=== PATIENT | male | born 1985 | race Caucasian/White ===

== ENCOUNTER 2018-01-27 17:59 | Inpatient (IN) | payer OTHER ==
[2018-01-27 20:04] VITALS: BMI 23.0
--- NOTE | 2018-01-27 21:55 | HP ---
CIWA Score - CIWA Score Nausea/Vomitin Muscle Tremors: 2 Anxiety: 4-Mod. Anxious/Guarded Agitation: 2 Paroxysmal Sweats: 2 Orientation: 0-Oriented Tacttile Disturbances: 2-Mild Itch/Numbness/Burn (both hands) Auditory Disturbances: 0-None Visual Disturbances: 0-None Headache: 2-Mild CIWA-Ar Total Score: 17 Admission ROS S - HPI Chief Complaint: benzodiazepine withdrawal symptoms Allergies/Adverse Reactions: Allergies Allergy/AdvReac Type Severity Reaction Status Date / Time No Known Allergies Allergy Verified 01/27/18 22:13 History of Present Illness: 32 yo male with first admission to detox, hx of benzodiazepine dependence is here here seeking detox and treatment for withdrawal symptoms. Patient was referred by news editor Margareth Castro, at [place] after patient verbalized to provider he was suffering from acute benzodiazepine withdrawal and patient was taking more than prescribed Benzos ( see letter from prescribing provider). Patient is to follow up with rehabilitation at [place] after completing detox. Patient has hx of chronic opioid dependence which he reports use to treat his chronic back pain, patient's opioids were discontinued and patient was started on suboxone on 01/13/18. PMHX: chronic back pain, depression, anxiety. Hx of multiple suicide attempts with last episode March 2017. Denies hx of seizures or blackouts. Utox positive for AMANDA, BZO and BUP. Reports tried cocaine for the first time this past 01/23/18. Reference #: [id number] Others' Prescriptions Patient Name: Nba De Dios Date: 1985 Address: [address] [place] [address] Sex: Male Rx Written Rx Dispensed Drug Quantity Days Supply Prescriber Name 01/13/2018 01/14/2018 suboxone 8 mg-2 mg sl film 60 30 Belia Andrew MD 10/28/2017 10/28/2017 zolpidem tartrate 5 mg tablet 10 10 Margareth Castro 10/25/2017 10/25/2017 clonazepam 0.5 mg tablet 60 30 Margareth Castro 10/10/2017 10/10/2017 oxycodone-acetaminophen 10-325 mg tab 90 30 Belia Andrew MD 09/12/2017 09/12/2017 oxycodone-acetaminophen 10-325 mg tab 90 30 Belia Andrew MD 08/18/2017 08/19/2017 clonazepam 0.5 mg tablet 1 1 Saira Mcdermott MD 02/20/2017 02/20/2017 oxycodone-acetaminophen 10-325 mg tab 120 30 Javier Galvez MD Patient Name: Nba De Dios Date: 1985 Address: [address] [place] [address] Sex: Male Rx Written Rx Dispensed Drug Quantity Days Supply Prescriber Name 01/07/2018 01/08/2018 oxycodone hcl 10 mg tablet 28 7 Forrest Red Jr, MD 01/07/2018 01/07/2018 clonazepam 1 mg tablet 60 30 Forrest Red Jr, MD 12/18/2017 12/20/2017 oxycodone-acetaminophen 10-325 mg tab 120 30 Forrest Red Jr, MD 12/19/2017 12/19/2017 oxycodone-acetaminophen 10-325 mg tab 3 1 Forrest Red Jr, MD 11/18/2017 11/19/2017 oxycodone-acetaminophen 10-325 mg tab 90 30 Forrest Red Jr, MD 11/05/2017 11/05/2017 clonazepam 1 mg tablet 90 30 Binh Castrosean [place] 11/05/2017 11/05/2017 zolpidem tartrate 5 mg tablet 30 30 Binh Castrocy G 11/01/2017 11/01/2017 clonazepam 2 mg tablet 30 30 MatthewBinhcy G 11/01/2017 11/01/2017 zolpidem tartrate 10 mg tablet 10 10 MatthewBinhcy G 10/28/2017 10/28/2017 alprazolam 0.5 mg tablet 30 15 Matthew Margareth G 10/18/2017 10/18/2017 clonazepam 1 mg tablet 31 15 Binh Castrocy G 10/11/2017 10/11/2017 clonazepam 1 mg tablet 15 7 Wolfgang Thomas MD 09/23/2017 09/23/2017 clonazepam 0.5 mg tablet 30 30 Adryan Penaloza 09/19/2017 09/19/2017 clonazepam 0.5 mg tablet 5 5 Adryan Penaloza 09/03/2017 09/03/2017 clonazepam 1 mg tablet 7 7 Adryan Penaloza 08/27/2017 08/27/2017 clonazepam 0.5 mg tablet 14 14 Adryan Penaloza Patient Name: Nba De Dios Date: 1985 Address: [place] [address] Sex: Male Rx Written Rx Dispensed Drug Quantity Days Supply Prescriber Name 08/18/2017 08/18/2017 clonazepam 0.5 mg tablet 1 1 Saira Mcdermott MD Exam Limitations: No Limitations - Ebola screening Have you traveled outside of the country in the last 21 days: No (N) Have you had contact with anyone from an Ebola affected area: No Have you been sick,other than usual withdrawal symptoms: No Do you have a fever: No - Review of Systems Constitutional: Chills, Diaphoresis, Loss of Appetite, Changes in sleep EENT: reports: No Symptoms Reported Respiratory: reports: No Symptoms reported Cardiac: reports: No Symptoms Reported GI: reports: No Symptoms Reported, Nausea, Poor Appetite, Poor Fluid Intake : reports: No Symptoms Reported Musculoskeletal: reports: Back Pain Integumentary: reports: No Symptoms Reported Neuro: reports: Tingling (hands and feet), Dizziness Endocrine: reports: Increased Thirst Hematology: reports: Easy Bleeding Psychiatric: reports: Orientated x3, Anxious, Depressed Other Systems: Reviewed and Negative Patient History - Patient Medical History Hx Anemia: No Hx Asthma: No Hx Cancer: No Hx Cardiac Disorders: No Hx Congestive Heart Failure: No Hx Hypertension: No Hx Hypercholesterolemia: No Hx Pacemaker: No HX Cerebrovascular Accident: No Hx Seizures: No Hx Dementia: No Hx Diabetes: No Hx Gastrointestinal Disorders: No Hx Liver Disease: No Hx Genitourinary Disorders: No Hx Sexually Transmitted Disorders: No Hx Renal Disease (ESRD): No Hx Thyroid Disease: No Hx Human Immunodeficiency Virus (HIV): No (last tested three months ago with negative results ) Hx Hepatitis C: No Hx Depression: Yes Hx Suicide Attempt: No Hx Bipolar Disorder: No Hx Schizophrenia: No - Patient Surgical History Past Surgical History: Yes Hx Neurologic Surgery: No Hx Cataract Extraction: No Hx Cardiac Surgery: No Hx Lung Surgery: No Hx Breast Surgery: No Hx Breast Biopsy: No Hx Abdominal Surgery: No Hx Appendectomy: No Hx Cholecystectomy: No Hx Genitourinary Surgery: No Hx Section: No Hx Orthopedic Surgery: Yes (Right Routattor cuff repair x 10 years ago ) Anesthesia Reaction: No - PPD History Previous Implant?: No Documented Results: Negative w/o proof PPD to be Administered?: Yes - Smoking Cessation Smoking history: Never smoked Hx Chewing Tobacco Use: No Initiated information on smoking cessation: No - Substance & Tx. History Hx Alcohol Use: No Hx Substance Use: Yes Substance Use Type: Opiates, Tranquilizers Hx Substance Use Treatment: No - Substances Abused clonazepam Route: Oral Frequency: Daily Amount used: 4 mg Age of first use: 31 Date of Last Use: 01/22/18 Family Disease History - Family Disease History Family History: Denies Admission Physical Exam [facility] - Vital Signs Vital Signs: Vital Signs - 24 hr 01/27/18 20:00 Temperature 97 F L Pulse Rate 112 H Respiratory 18 Rate Blood Pressure 150/100 - Physical General Appearance: Yes: Disheveled, Moderate Distress, Thin, Sweating, Anxious HEENTM: Yes: EOMI, Hearing grossly Normal, Normal ENT Inspection, Normocephalic , Normal Voice, DAMARIS, Pharynx Normal, Tm's normal Respiratory: Yes: Chest Non-Tender, Lungs Clear, Normal Breath Sounds, No Respiratory Distress, No Accessory Muscle Use Neck: Yes: Within Normal Limits Breast: Yes: Breast Exam Deferred Cardiology: Yes: Regular Rhythm, Tachycardia Abdominal: Yes: Normal Bowel Sounds, Non Tender, Flat, Soft Genitourinary: Yes: Within Normal Limits Back: Yes: Normal Inspection Musculoskeletal: Yes: full range of Motion, Gait Steady, Pelvis Stable, Back pain Extremities: Yes: Normal Capillary Refill, Normal Inspection, Normal Range of Motion, Non-Tender Neurological: Yes: seat joiner II-XII NML intact, Fully Oriented, Alert, Motor Strength 5/5, Depressed Affect Integumentary: Yes: Normal Color, Warm, Diaphoresis Lymphatic: Yes: Within Normal Limits - Diagnostic (1) Sedative, hypnotic or anxiolytic dependence with withdrawal with perceptual disturbance Current Visit: Yes Status: Acute (2) Opioid dependence on agonist therapy Current Visit: Yes Status: Acute (3) Elevated blood pressure reading Current Visit: Yes Status: Acute (4) Depression Current Visit: Yes Status: Chronic Qualifiers: Depression Type: unspecified Qualified Code(s): F32.9 - Major depressive disorder, single episode, unspecified (5) Chronic back pain Current Visit: Yes Status: Chronic Qualifiers: Back pain location: low back pain Back pain laterality: unspecified Sciatica presence: without sciatica Qualified Code(s): M54.5 - Low back pain; G89.29 - Other chronic pain Cleared for Admission [facility] - Detox or Rehab [facility] Level of Care: Medically Managed Detox Regimen/Protocol: Valium S Breath Alcohol Content Breath Alcohol Content: 0 Urine Drug Screen - Results Drug Screen Negative: No Urine Drug Screen Results: AMANDA-Cocaine, BZO-Benzodiazepines, BUP-Suboxone
[2018-01-27] MEDS ORDERED: ACETAMINOPHEN 325 MG TABLET (FP) PO PRN (22:27)
[2018-01-27] MEDS ORDERED: guaiFENesin/D-METHORPHAN HB 10 ML UNIT-DOSE CUPS PO PRN (22:27)
[2018-01-27] MEDS ORDERED: MENTHOL/PHENOL 1 EACH UD MM PRN (22:27)
[2018-01-27] MEDS ORDERED: P-EPHED 60MG/TRIPROLIDI 2.5MG TABLET PO PRN (22:27)
[2018-01-27] MEDS ORDERED: MAGNESIUM HYDROX 2400MG/30ML ORAL SUSPENSION 30 ML CUP PO PRN (22:27)
[2018-01-27] MEDS ORDERED: MAG HYDROX/AL HYDROX/SIMETH 30 ML UNIT-DOSE CUP PO PRN (22:27)
[2018-01-27] MEDS ORDERED: diazePAM 5 MG TABLET PO ONE (22:27)
[2018-01-27] MEDS ORDERED: LOPERAMIDE HCL 2 MG CAPSULE PO PRN (22:27)
[2018-01-27] MEDS ORDERED: MAGNESIUM CITRATE 300 ML BOTTLE PO PRN (22:27)
[2018-01-27] MEDS: MELATONIN 5 MG TABLETS PO PRN (23:50)
[2018-01-27] MEDS ORDERED: cloNIDine HCL 0.1 MG TABLET PO ONE (23:52)
[2018-01-27] MEDS: diazePAM 5 MG TABLET PO SCH ×2 (23:54→23:55)
--- NOTE | 2018-01-27 23:55 | PN ---
S Progress Note Note: Patient's blood pressure is B/P 166/100. Patient is asymptomatic Vital Signs Temperature 98.5 F 01/27/18 23:47 Pulse Rate 111 H 01/27/18 23:47 Respiratory Rate 20 01/27/18 23:47 Blood Pressure 166/100 01/27/18 23:47 O2 Sat by Pulse Oximetry (%) Action: Clonidine 0.1mg tablet oral ordered
[2018-01-28] MEDS: CYCLOBENZAPRINE HCL 10 MG TABLET (FP) PO SCH ×3 (05:42→22:26)
[2018-01-28] MEDS: diazePAM 5 MG TABLET PO SCH ×3 (05:42→22:26)
[2018-01-28] MEDS: diazePAM 5 MG TABLET PO PRN ×2 (10:15→17:17)
[2018-01-28] MEDS: BUPRENORPHINE/NALOXONE 8 MG/2 MG FILM PACKET SL SCH ×2 (10:16→22:48)
[2018-01-28] MEDS: PRENATAL VITAMINS W/ FOLIC ACID TABLET (FP) PO SCH (10:16)
[2018-01-28] MEDS: LIDOCAINE 5% TOPICAL PATCH TP SCH (10:17)
[2018-01-28 10:44] LABS: HEMATOCRIT 43.5 % (35.4-49); HEMOGLOBIN 14.3 GM/dL (11.7-16.9); MCH 29.4 pg (25.7-33.7); MCHC 32.8 g/dl (32.0-35.9); MEAN CELL VOLUME 89.8 fl (80-96); MEAN PLT VOLUME 7.9 fl (7.5-11.1); PLATELET COUNT 273 K/MM3 (134-434); RBC 4.85 M/mm3 (4.00-5.60); RDW 13.6 % (11.9-15.9); WHITE BLOOD COUNT 9.5 K/mm3 (4.0-10.0)
--- NOTE | 2018-01-28 10:59 | EKG ---
Test Reason : Blood Pressure : / mmHG Vent. Rate : 100 BPM Atrial Rate : 100 BPM P-R Int : 126 ms QRS Dur : 076 ms QT Int : 330 ms P-R-T Axes : 046 048 080 degrees QTc Int : 425 ms NORMAL SINUS RHYTHM T WAVE ABNORMALITY, CONSIDER ANTEROLATERAL ISCHEMIA ABNORMAL ECG NO PREVIOUS ECGS AVAILABLE Confirmed by MD PAULA, SHAHEED ([id number]) on 01/28/2018 10:58:59 AM Referred By: Confirmed By:SHAHEED MITCHELL MD
--- NOTE | 2018-01-28 11:15 | PN ---
S CIWA - CIWA Score Nausea/Vomitin Muscle Tremors: 4-Moderate,w/Arms Extend Anxiety: 4-Mod. Anxious/Guarded Agitation: 4-Moderately Restless Paroxysmal Sweats: 3 Orientation: 0-Oriented Tacttile Disturbances: 1-Very Mild Itch/Numbness Auditory Disturbances: 0-None Visual Disturbances: 0-None Headache: 1-Very Mild CIWA-Ar Total Score: 19 [facility] Progress Note (SOAP) Subjective: Headache, interrupted sleep, eyes aching, tremor, anxiety Objective: 01/28/18 11:11 Last Vital Signs Temp Pulse Resp BP Pulse Ox 97.9 F 100 H 18 144/91 01/28/18 09:15 01/28/18 09:15 01/28/18 09:15 01/28/18 09:15 Laboratory Tests 01/28/18 07:00 WBC 9.5 RBC 4.85 Hgb 14.3 Hct 43.5 MCV 89.8 MCH 29.4 MCHC 32.8 RDW 13.6 Plt Count 273 MPV 7.9 CBC results reviewed Chemistry and serology result pending Assessment: 01/28/18 11:14 Withdrawal symptoms Plan: Continue detox Encouraged PO water intake
[2018-01-28 11:34] LABS: ALBUMIN 3.8 g/dl (3.4-5.0); ALK PHOS 160 U/L (45-117); ANION GAP 11 MMOL/L (8-16); BILIRUBIN,TOTAL 0.5 mg/dL (0.2-1); BLOOD UREA NITROGEN 24 mg/dL (7-18); CALCIUM 9.2 mg/dL (8.5-10.1); CHLORIDE 105 mmol/L (98-107); CO2 26 mmol/L (21-32); CREATININE 1.1 mg/dL (0.55-1.3); GLUCOSE,RANDOM 97 mg/dL (74-106); SGOT/AST 22 U/L (15-37); SGPT/ALT 64 U/L (13-61); SODIUM 142 mmol/L (136-145); TOT PROT 7.8 g/dl (6.4-8.2)
[2018-01-28] MEDS ORDERED: COLLOIDAL OATMEAL 1 BAR EACH TP PRN (12:14)
--- NOTE | 2018-01-28 17:09 | CONSULT ---
[facility] Psychiatric Consult - Data Date of interview: 01/28/18 Admission source: [facility] Identifying data: First admission to [facility] for this 32 y/o male referred for detoxification treatment (by accounts payable assistant Vera from [facility]) for opiate + benzodiazepine dependence.Admitted to [address] [place] [address].Patient is single without dependents,domiciled,unemployed and supported by his parents. Substance Abuse History: Discussed with patient in this interview.Mr De Dios endorses heavy dependence on oxycodone and clonazepam (takes more than prescribed).Details in current [facility] report as follows : Smoking history: Never smoked. Hx Chewing Tobacco Use: No. Initiated information on smoking cessation : No. - Substance & Tx. History. Hx Alcohol Use: No. Hx Substance Use: Yes. Substance Use Type: Opiates, Tranquilizers. Hx Substance Use Treatment: No. - Substances Abused. clonazepam. Route: Oral. Frequency: Daily. Amount used : 4 mg. Age of first use: 31. Date of Last Use: 01/22/18 Medical History: Patient endorses good general health.Noted distant history of orthosurgery (left rotator cuff). Psychiatric History: Patient admits to a history of multiple psychiatric hospitalizations at [facility] Diagnosed with MDD and Anxiety Disorder.Maintained on a regimen of seroquel 200 mg/hs + remeron 30 mg/ hs.Mr De Dios is followed at the [facility] OPD clinic.Admits to onse suicide attempt (March 2017) via self-mutilation (wrist-cutting).Patient is currently on buprenorphine maintenance. Physical/Sexual Abuse/Trauma History: Patient denies. Additional Comment: Urine Drug Screen Results: AMANDA-Cocaine, BZO-Benzodiazepines , BUP-Suboxone.Noted. Mental Status Exam - Mental Status Exam Alert and Oriented to: Time, Place, Person Cognitive Function: Good Patient Appearance: Well Groomed Mood: Nervous, Withdrawn, Anxious Affect: Mood Congruent, Constricted Patient Behavior: Fatigued, Appropriate, Cooperative Speech Pattern: Clear Voice Loudness: Normal Thought Process: Intact, Goal Oriented Thought Disorder: Not Present Hallucinations: Denies Suicidal Ideation: Denies Insight/Judgement: Poor Sleep: Poorly, Difficulty falling asleep Appetite: Good Muscle strength/Tone: Normal Gait/Station: Normal Psychiatric Findings - Problem List ([place] 1, 2,3) (1) Opioid dependence on agonist therapy Current Visit: Yes Status: Acute (2) Sedative, hypnotic or anxiolytic dependence with withdrawal with perceptual disturbance Current Visit: Yes Status: Acute (3) Substance induced mood disorder Current Visit: Yes Status: Acute (4) Mood disorder Current Visit: Yes Status: Chronic (5) Insomnia Current Visit: Yes Status: Acute - Initial Treatment Plan Initial Treatment Plan: Psychoeducation.Sleep hygiene.Detoxification in progress. Medications : remeron 15 mg po hs + seroquel 200 mg po hs.Both drugs are reduced for prevention of oversedation.Titration to optimal doses (30 mg and 300 mg respectively) will be implemented in next 24-48 hours if well tolerated.Side effects/benefits discussed with patient.Mr De Dios is in agreement with this plan of care.Medications verified via review of pharmacy claims of 01/07 at [facility] (refer to electronic files).Observation.
[2018-01-28] MEDS: IBUPROFEN 400 MG TABLET (FP) PO PRN (17:17)
[2018-01-28 17:48] LABS: URINE APPEARANCE CLEAR; URINE BILIRUBIN NEGATIVE (<2.0 mg/dL); URINE COLOR YELLOW; URINE GLUCOSE (UA) NEGATIVE (NEGATIVE); URINE KETONE NEGATIVE (NEGATIVE); URINE LEUK ESTERASE NEGATIVE (NEGATIVE); URINE NITRITE NEGATIVE (NEGATIVE); URINE PROTEIN NEGATIVE (NEGATIVE); URINE UROBILINOGEN NEGATIVE mg/dL (0.2-1.0)
[2018-01-28] MEDS: THIAMINE HCL 100 MG TABLET (FP) PO SCH (22:26)
[2018-01-28] MEDS: MIRTAZAPINE 15 MG TABLET (FP) PO SCH (22:47)
[2018-01-28] MEDS: QUEtiapine FUMARATE 200 MG TABLET PO SCH (22:47)
[2018-01-28] MEDS: LIDOCAINE PATCH REMOVAL MC SCH (23:34)
[2018-01-29] MEDS: diazePAM 5 MG TABLET PO PRN ×4 (00:30→16:48)
[2018-01-29] MEDS: MELATONIN 5 MG TABLETS PO PRN (00:31)
[2018-01-29] MEDS: CYCLOBENZAPRINE HCL 10 MG TABLET (FP) PO SCH ×3 (06:24→22:25)
[2018-01-29] MEDS: LIDOCAINE 5% TOPICAL PATCH TP SCH (09:31)
[2018-01-29] MEDS: hydrOXYzine PAMOATE 50 MG CAPSULE (FP) PO PRN (09:31)
[2018-01-29] MEDS: PRENATAL VITAMINS W/ FOLIC ACID TABLET (FP) PO SCH (09:32)
[2018-01-29] MEDS: diazePAM 5 MG TABLET PO SCH ×2 (09:32→22:25)
[2018-01-29] MEDS: BUPRENORPHINE/NALOXONE 8 MG/2 MG FILM PACKET SL SCH ×2 (10:05→22:25)
--- NOTE | 2018-01-29 11:21 | PN ---
[facility] CIWA - CIWA Score Nausea/Vomitin-Mild Nausea/No Vomiting Muscle Tremors: 3 Anxiety: 3 Agitation: 3 Paroxysmal Sweats: 3 Orientation: 0-Oriented Tacttile Disturbances: 0-None Auditory Disturbances: 0-None Visual Disturbances: 0-None Headache: 0-None Present CIWA-Ar Total Score: 13 [facility] Progress Note (SOAP) Subjective: Anxious, interrupted sleep, sweating. Patient reported taking remeron 30mg, seroquel 300mg and trintellix 20mg daily at home. Patient is requesting his trintellix resumed due to abrupt withdrawal precaution. Copyright Expert will place psychiatric consult regarding this matter. Objective: 01/29/18 11:15 Last Vital Signs Temp Pulse Resp BP Pulse Ox 96.6 F L 110 H 18 141/94 01/29/18 09:25 01/29/18 09:25 01/29/18 09:25 01/29/18 09:25 Noted with elevated B/P Laboratory Tests 01/28/18 01/28/18 01/28/18 07:00 07:00 07:00 WBC 9.5 RBC 4.85 Hgb 14.3 Hct 43.5 MCV 89.8 MCH 29.4 MCHC 32.8 RDW 13.6 Plt Count 273 MPV 7.9 Sodium 142 Potassium 4.0 Chloride 105 Carbon Dioxide 26 Anion Gap 11 BUN 24 H Creatinine 1.1 Creat Clearance w eGFR > 60 Random Glucose 97 Calcium 9.2 Total Bilirubin 0.5 AST 22 ALT 64 H Alkaline Phosphatase 160 H Total Protein 7.8 Albumin 3.8 Urine Color Urine Appearance Urine pH Ur Specific [place] Urine Protein Urine Glucose (UA) Urine Ketones Urine Blood Urine Nitrite Urine Bilirubin Urine Urobilinogen Ur Leukocyte Esterase RPR Titer Nonreactive 01/28/18 17:00 WBC RBC Hgb Hct MCV MCH MCHC RDW Plt Count MPV Sodium Potassium Chloride Carbon Dioxide Anion Gap BUN Creatinine Creat Clearance w eGFR Random Glucose Calcium Total Bilirubin AST ALT Alkaline Phosphatase Total Protein Albumin Urine Color Yellow Urine Appearance Clear Urine pH 6.0 Ur Specific [place] 1.031 Urine Protein Negative Urine Glucose (UA) Negative Urine Ketones Negative Urine Blood Negative Urine Nitrite Negative Urine Bilirubin Negative Urine Urobilinogen Negative Ur Leukocyte Esterase Negative RPR Titer Labs reviewed: bun 24 Assessment: 01/29/18 11:17 Withdrawal symptoms Noted with azotemia and elevated B/P (dx any h/o HTN) Plan: Continue detox Psychiatric consult ordered re: resuming trintellix in preventing withdrawal symptoms due to abruptly stopping medication x 2 days as per patient Azotemia: encouraged PO water hydration Elevated B/P: clonidine 0.1mg PO q8hr prn if b/p> 130/90
[2018-01-29] MEDS: QUEtiapine FUMARATE 200 MG TABLET PO SCH (22:25)
[2018-01-29] MEDS: MIRTAZAPINE 15 MG TABLET (FP) PO SCH (22:25)
[2018-01-29] MEDS: LIDOCAINE PATCH REMOVAL MC SCH (22:26)
[2018-01-29] MEDS: THIAMINE HCL 100 MG TABLET (FP) PO SCH (23:02)
[2018-01-30] MEDS: diazePAM 5 MG TABLET PO PRN ×4 (00:32→17:33)
[2018-01-30] MEDS: CYCLOBENZAPRINE HCL 10 MG TABLET (FP) PO SCH ×3 (05:06→22:48)
[2018-01-30] MEDS: diazePAM 5 MG TABLET PO SCH ×2 (10:07→22:48)
[2018-01-30] MEDS: BUPRENORPHINE/NALOXONE 8 MG/2 MG FILM PACKET SL SCH ×2 (10:07→22:48)
[2018-01-30] MEDS: LIDOCAINE 5% TOPICAL PATCH TP SCH (10:07)
[2018-01-30] MEDS: PRENATAL VITAMINS W/ FOLIC ACID TABLET (FP) PO SCH (10:07)
[2018-01-30] MEDS: cloNIDine HCL 0.1 MG TABLET PO PRN (10:07)
--- NOTE | 2018-01-30 11:44 | PN ---
[facility] Progress Note (SOAP) Subjective: Anxiety, interrupted sleep, sweating Objective: 01/30/18 11:41 Last Vital Signs Temp Pulse Resp BP Pulse Ox 96.8 F L 102 H 20 146/81 01/30/18 09:06 01/30/18 09:06 01/30/18 09:06 01/30/18 09:06 Laboratory Tests 01/28/18 01/28/18 01/28/18 07:00 07:00 07:00 WBC 9.5 RBC 4.85 Hgb 14.3 Hct 43.5 MCV 89.8 MCH 29.4 MCHC 32.8 RDW 13.6 Plt Count 273 MPV 7.9 Sodium 142 Potassium 4.0 Chloride 105 Carbon Dioxide 26 Anion Gap 11 BUN 24 H Creatinine 1.1 Creat Clearance w eGFR > 60 Random Glucose 97 Calcium 9.2 Total Bilirubin 0.5 AST 22 ALT 64 H Alkaline Phosphatase 160 H Total Protein 7.8 Albumin 3.8 Urine Color Urine Appearance Urine pH Ur Specific [place] Urine Protein Urine Glucose (UA) Urine Ketones Urine Blood Urine Nitrite Urine Bilirubin Urine Urobilinogen Ur Leukocyte Esterase RPR Titer Nonreactive 01/28/18 17:00 WBC RBC Hgb Hct MCV MCH MCHC RDW Plt Count MPV Sodium Potassium Chloride Carbon Dioxide Anion Gap BUN Creatinine Creat Clearance w eGFR Random Glucose Calcium Total Bilirubin AST ALT Alkaline Phosphatase Total Protein Albumin Urine Color Yellow Urine Appearance Clear Urine pH 6.0 Ur Specific [place] 1.031 Urine Protein Negative Urine Glucose (UA) Negative Urine Ketones Negative Urine Blood Negative Urine Nitrite Negative Urine Bilirubin Negative Urine Urobilinogen Negative Ur Leukocyte Esterase Negative RPR Titer Labs reviewed: bun 24 Assessment: 01/30/18 11:43 Withdrawal symptoms Noted with azotemia Plan: Continue detox Azotemia: encouraged PO water hydration
[2018-01-30] MEDS: IBUPROFEN 400 MG TABLET (FP) PO PRN (12:27)
[2018-01-30] MEDS: QUEtiapine FUMARATE 200 MG TABLET PO SCH (22:48)
[2018-01-30] MEDS: THIAMINE HCL 100 MG TABLET (FP) PO SCH (22:48)
[2018-01-30] MEDS: MIRTAZAPINE 15 MG TABLET (FP) PO SCH (22:48)
[2018-01-30] MEDS: MELATONIN 5 MG TABLETS PO PRN (22:49)
[2018-01-30] MEDS: LIDOCAINE PATCH REMOVAL MC SCH (23:17)
[2018-01-31] MEDS: hydrOXYzine PAMOATE 50 MG CAPSULE (FP) PO PRN ×2 (01:12→05:20)
[2018-01-31] MEDS: CYCLOBENZAPRINE HCL 10 MG TABLET (FP) PO SCH (05:11)
[2018-01-31 09:09] VITALS: BP 136/85; PULSE 111; TEMP 96.7
[2018-01-31] MEDS ORDERED: diazePAM 5 MG TABLET PO SCH (10:00)
[2018-01-31] MEDS: cloNIDine HCL 0.1 MG TABLET PO PRN (10:08)
[2018-01-31] MEDS: BUPRENORPHINE/NALOXONE 8 MG/2 MG FILM PACKET SL SCH (10:08)
[2018-01-31] MEDS: PRENATAL VITAMINS W/ FOLIC ACID TABLET (FP) PO SCH (10:08)
--- NOTE | 2018-01-31 10:24 | PN ---
[facility] Progress Note Note: PATIENT FOR DISCHARGE TODAY. CURRENTLY ON SUBOXONE TREATMENT 8MG/2MG SL BID BY DR. LAKEISHA CHEW ON [address] [place] [address].[address]. NUMBER [phone]. PATIENT HAS APPOINTMENT FOR 02/06/18 AT 11:30AM. PRESCRIPTION FOR SUBOXONE 8MG/ 2MG SL BID FOR 7 DAYS #14 WITH NO REFILLS SENT TO [facility].
--- NOTE | 2018-01-31 11:35 | DS ---
[facility] Detox Discharge Summary Admission Date: 01/27/18 Discharge Date: 01/31/18 - History Present History: Opioid Dependence, Sedative Dependence Additional Comments: Patient reported taking suboxone bid Rx by his PCP, Dr. Belia Andrew at [address] [place] [address], [address], tel [phone]. Patient could not produce his PCP's contact information. RN on 3N, Ms. Mancia was able to google in this information and provided it to policy writer typist. I contacted patient's PCP office and was told patient has F/U appt on 02/06/18 at 11:30am. As per patient, he takes antipsychotic medications and he has been non compliant with his psychiatric follow up visits. Airport Electrician educated patient on importance of taking his medications as prescribed and to keep all of his appointments. Patient was Rx suboxone upon discharge as per his request but pharmacist at [facility] reported to staff that patient previously filled Rx and should still have available suboxone until seen by his therefore, Rx was cancelled. Pertinent Past History: Denies - Physical Exam Results Vital Signs: Vital Signs Temperature 96.7 F L 01/31/18 09:09 Pulse Rate 111 H 01/31/18 09:09 Respiratory Rate 19 01/31/18 09:09 Blood Pressure 136/85 01/31/18 09:09 O2 Sat by Pulse Oximetry (%) Pertinent Admission Physical Exam Findings: Withdrawal symptoms Laboratory Tests 01/28/18 01/28/18 01/28/18 07:00 07:00 07:00 WBC 9.5 RBC 4.85 Hgb 14.3 Hct 43.5 MCV 89.8 MCH 29.4 MCHC 32.8 RDW 13.6 Plt Count 273 MPV 7.9 Sodium 142 Potassium 4.0 Chloride 105 Carbon Dioxide 26 Anion Gap 11 BUN 24 H Creatinine 1.1 Creat Clearance w eGFR > 60 Random Glucose 97 Calcium 9.2 Total Bilirubin 0.5 AST 22 ALT 64 H Alkaline Phosphatase 160 H Total Protein 7.8 Albumin 3.8 Urine Color Urine Appearance Urine pH Ur Specific [place] Urine Protein Urine Glucose (UA) Urine Ketones Urine Blood Urine Nitrite Urine Bilirubin Urine Urobilinogen Ur Leukocyte Esterase RPR Titer Nonreactive 01/28/18 17:00 WBC RBC Hgb Hct MCV MCH MCHC RDW Plt Count MPV Sodium Potassium Chloride Carbon Dioxide Anion Gap BUN Creatinine Creat Clearance w eGFR Random Glucose Calcium Total Bilirubin AST ALT Alkaline Phosphatase Total Protein Albumin Urine Color Yellow Urine Appearance Clear Urine pH 6.0 Ur Specific [place] 1.031 Urine Protein Negative Urine Glucose (UA) Negative Urine Ketones Negative Urine Blood Negative Urine Nitrite Negative Urine Bilirubin Negative Urine Urobilinogen Negative Ur Leukocyte Esterase Negative RPR Titer Labs reviewed: bun 24 (encouraged PO water hydration) - Treatment Hospital Course: Detox Protocol Followed, Detoxed Safely, Responded well, Discharged Condition Good - Medication Discharge Medications: Ambulatory Orders Vortioxetine Hydrobromide [Trintellix] 20 mg PO DAILY 01/27/18 Mirtazapine [Remeron -] 15 mg PO HS #30 tablet 01/31/18 Quetiapine Fumarate [Seroquel -] 200 mg PO HS #30 tab 01/31/18 - Diagnosis (1) Elevated blood pressure reading Status: Acute (2) Opioid dependence on agonist therapy Status: Acute (3) Sedative, hypnotic or anxiolytic dependence with withdrawal with perceptual disturbance Status: Acute (4) Chronic back pain Status: Chronic Qualifiers: Back pain location: low back pain Back pain laterality: unspecified Sciatica presence: without sciatica Qualified Code(s): M54.5 - Low back pain; G89.29 - Other chronic pain (5) Depression Status: Chronic Qualifiers: Depression Type: unspecified Qualified Code(s): F32.9 - Major depressive disorder, single episode, unspecified (6) Azotemia Status: Acute - AMA Did Patient Leave Against Medical Advice: No (F/U with your PCP on 02/06/18 at 11 :30am as scheduled. Go to ER stat if w/d )
== END 2018-01-31 10:25 | disposition home or self-care (01) | DRG 773 ==
LOC: YASAS 17:59 → Y3N 22:53
PROC: HZ2ZZZZ Detoxification Services for Substance Abuse Treatment (ICD-10-PCS; principal; 2018-01-27)
DX: F13.230 Sedative, hypnotic or anxiolytic dependence with withdrawal, uncomplicated (principal); F11.20 Opioid dependence, uncomplicated; F19.24 Other psychoactive substance dependence with psychoactive substance-induced mood disorder; F39 Unspecified mood [affective] disorder; F32.9 Major depressive disorder, single episode, unspecified; I10 Essential (primary) hypertension; M54.9 Dorsalgia, unspecified; G89.29 Other chronic pain; R79.89 Other specified abnormal findings of blood chemistry
CPT/HCPCS: 36415; 80053; 81003; 85027; 86593; 93005; 93010; J0735